=== PATIENT | male | born 1960 ===

== ENCOUNTER 2020-10-22 11:45 | Inpatient (IN) | payer MEDICARE, OTHER ==
[~2020-10-22] VITALS: Ht 182.9 cm; Wt 153.5 kg
--- NOTE | 2020-10-22 12:18 | NUR ---
TASK RN FIST CONTACT: THIS IS A 60 YO M W/ C/O CP AND SOB X1 WEEK. PT REPORTS HE WAS TOLD TO COME IN BECAUSE HE HAD HIGH POTASSIUM. PT REPORTS HE ALSO HAD GLUCOSE OF 12 LAST WEEK. PT STATES THAT HE WANTED TO STAY AT HOME TO WATCH SUPERBOWL. PT PRESENTS DIAPHORETIC, IN BIGEMINY, COMPLAINTS OF SOB AND CP. OTHER VS WDL. PIV STARTED, PT MEDICATED PER VERBAL ORDER.
--- NOTE | 2020-10-22 12:20 | NUR ---
2ND PIV STARTED.
[2020-10-22] MEDS ORDERED: CALCIUM CHLORIDE 10%, 10ML SYR ONE (12:23)
[2020-10-22] MEDS ORDERED: DEXTROSE 50%, 50ML SYRINGE ONE ×2 (12:24→13:44)
[2020-10-22] MEDS ORDERED: INSULIN SINGLE DOSE, ER ONE (12:24)
[2020-10-22] MEDS ORDERED: ASPIRIN 81 MG TABLET CHEW ONE (12:27)
[2020-10-22] MEDS ORDERED: ASPIRIN 81 MG TABLET CHEW PO ONE (12:30)
--- NOTE | 2020-10-22 12:30 | NUR ---
TASK RN: 1 AMP D50, 10 UNITS REGULAR INSULIN, 1 AMP OF CALCIUM CHLORIDE GIVEN. 162MG ASPIRIN PO GIVEN. Addendum: 10/22/20 at 1304 by [email or web address] TASK RN: 1 AMP D50, 10 UNITS REGULAR INSULIN, 1 AMP OF CALCIUM CHLORIDE GIVEN BY STEPHANIE ALONZO PER VERBAL ORDER BY . 162MG ASPIRIN PO GIVEN.
[2020-10-22 12:41] LABS: BASOPHILS % (AUTO) 0 % (0-1); EOSINOPHILS % (AUTO) 1 % (1-7); LYMPHOCYTES % (AUTO) 19 % (22-44); MEAN CORPUSCULAR HEMOGLOBIN 28.3 pg (27.5-34.5); MEAN CORPUSCULAR HGB CONC 33.4 g/dL (33.2-36.2); MEAN PLATELET VOLUME 7.4 fL (7.4-10.4); MONOCYTES % (AUTO) 9 % (2-9); NEUTROPHILS % (AUTO) 71 % (42-75); PLATELET COUNT 323 x10^3/uL (130-400); RED BLOOD COUNT 5.37 x10^6/uL (4.38-5.82); RED CELL DISTRIBUTION WIDTH 14.5 % (9.4-14.8)
--- NOTE | 2020-10-22 12:45 | NUR ---
REPORT GIVEN TO LEIDA ALONZO.
[2020-10-22 12:51] LABS: MD NO
[2020-10-22 12:53] LABS: ALBUMIN 3.4 g/dL (3.4-5.0); ANION GAP 5 mmol/L (5-15); CALCIUM 8.9 mg/dL (8.5-10.1); CHLORIDE 103 mmol/L (98-107)
[2020-10-22 12:58] LABS: ALANINE AMINOTRANSFERASE 96 U/L (12-78); ALKALINE PHOSPHATASE 152 U/L (45-117); BILIRUBIN,TOTAL 0.9 mg/dL (0.2-1.0); CREATININE 1.24 mg/dL (0.7-1.3); TOTAL PROTEIN 7.1 g/dL (6.4-8.2)
[2020-10-22] MEDS ORDERED: HEPARIN 5,000 UNITS/ML, 1ML ONE (13:07)
[2020-10-22] MEDS ORDERED: HEPARIN 25,000 UNITS/250ML PMX 250 ML ONE (13:07)
[2020-10-22] MEDS ORDERED: FUROSEMIDE 40 MG/4 ML ONE (13:21)
[2020-10-22] MEDS ORDERED: INSULIN REGULAR 100 UNITS/ML, 3ML VIAL IVPush ONE (13:30)
[2020-10-22] MEDS ORDERED: CALCIUM CHLORIDE 10%, 10ML SYR IVPush ONE (13:30)
[2020-10-22] MEDS ORDERED: DEXTROSE 50%, 50ML SYRINGE IVPush ONE ×2 (13:30→14:00)
[2020-10-22] MEDS ORDERED: HEPARIN 5,000 UNITS/ML, 1ML IV ONE ×2 (13:30)
[2020-10-22] MEDS ORDERED: HEPARIN 5,000 UNITS/ML, 1ML IV PRN (13:30)
[2020-10-22] MEDS ORDERED: FUROSEMIDE 40 MG/4 ML IV ONE (13:30)
[2020-10-22] MEDS ORDERED: HEPARIN 25,000 UNITS/250ML PMX 250 ML IV PRN (13:30)
[2020-10-22] MEDS: HEPARIN 25,000 UNITS/250ML PMX 250 ML IV PRN ×2 (13:35→15:55)
--- NOTE | 2020-10-22 13:39 | NUR ---
This RN called lab so anti-xa could be run prior to this RN starting or administering heparin.
[2020-10-22] MEDS ORDERED: DEXTROSE 50%, 50ML SYRINGE IVPush STA (13:54)
--- NOTE | 2020-10-22 13:56 | NUR ---
Pt reports feeling "shakey like blood sugar." FSBG 60. MD Martinez made aware, verbal order for NPO and 1/2 amp D50. Administered.
[2020-10-22] MEDS ORDERED: MIDAZOLAM 1 MG/ML, 5ML ONE (14:15)
[2020-10-22] MEDS ORDERED: FENTANYL PF 100 MCG/2ML ONE (14:15)
[2020-10-22] MEDS ORDERED: VERAPAMIL 2.5 MG/ML, 2ML ONE (14:16)
[2020-10-22] MEDS ORDERED: LIDOCAINE-MPF 1%, 5ML ONE (14:16)
[2020-10-22] MEDS ORDERED: BIVALIRUDIN 250 MG ONE (14:16)
[2020-10-22] MEDS ORDERED: HEPARIN 1,000 UNITS/ML, 10ML ONE (14:16)
[2020-10-22] MEDS: SODIUM CHLORIDE 0.9% 1,000 ML IV SCH ×2 (15:30→23:30)
[2020-10-22] MEDS ORDERED: POLYETHYLENE GLYCOL 17 GM PACKET PO PRN (16:00)
[2020-10-22] MEDS ORDERED: morphine SULFATE 10 MG/ML, 1ML IVPush PRN (16:00)
[2020-10-22] MEDS ORDERED: DOCUSATE 100 MG CAPSULE PO PRN (16:00)
[2020-10-22] MEDS ORDERED: ONDANSETRON 2MG/ML, 2ML IVPush PRN (16:00)
[2020-10-22] MEDS ORDERED: LABETALOL 5MG/ML, 20ML IVPush PRN (16:00)
[2020-10-22 16:17] VITALS: BP 138/73
[2020-10-22] MEDS ORDERED: GLUCAGON 1 MG IM PRN (16:30)
[2020-10-22] MEDS ORDERED: DEXTROSE 4 GM TAB.CHEW PO PRN (16:30)
[2020-10-22] MEDS ORDERED: DEXTROSE 50%, 50ML SYRINGE IVPush PRN (16:30)
[2020-10-22] MEDS: OXYcodone IR 5MG TABLET PO PRN (17:09)
[2020-10-22] MEDS: METOPROLOL TARTRATE 25 MG TAB PO SCH (17:09)
[2020-10-22] MEDS: LIDODERM 5% PATCH TD SCH (18:10)
[2020-10-22 20:00] VITALS: BP 139/85
[2020-10-22] MEDS: GABAPENTIN 300 MG CAPSULE PO SCH (20:24)
[2020-10-22] MEDS: ATORVASTATIN 40 MG TABLET PO SCH (20:25)
[2020-10-22] MEDS: SODIUM CHLORIDE FLUSH 10ML SYR IVF SCH (20:28)
[2020-10-22] MEDS: INSULIN LISPRO 100 UNITS/ML, PEN SQ-INSULIN SCH (20:34)
[2020-10-22] MEDS ORDERED: METOPROLOL TARTRATE 25 MG TAB PO ONE ×2 (21:46→23:59)
[2020-10-22 22:08] VITALS: BP 137/78
[2020-10-22] MEDS: HEPARIN 5,000 UNITS/ML, 1ML IV PRN (23:42)
[2020-10-23 00:46] VITALS: BP 122/81
[2020-10-23] MEDS: OXYcodone IR 5MG TABLET PO PRN ×4 (01:29→21:07)
[2020-10-23 05:25] VITALS: BP 136/82
[2020-10-23] MEDS: METOPROLOL TARTRATE 25 MG TAB PO SCH ×2 (05:29→16:49)
[2020-10-23] MEDS: ASPIRIN 81 MG TABLET EC PO SCH (05:29)
[2020-10-23] MEDS: LIDODERM REMOVE PATCH NOTE XX SCH (05:30)
[2020-10-23 05:31] LABS: BASOPHILS % (AUTO) 1 % (0-1); EOSINOPHILS % (AUTO) 1 % (1-7); LYMPHOCYTES % (AUTO) 30 % (22-44); MEAN CORPUSCULAR HEMOGLOBIN 28.4 pg (27.5-34.5); MEAN CORPUSCULAR HGB CONC 33.3 g/dL (33.2-36.2); MONOCYTES % (AUTO) 11 % (2-9); NEUTROPHILS % (AUTO) 58 % (42-75); PLATELET COUNT 298 x10^3/uL (130-400); RED BLOOD COUNT 5.37 x10^6/uL (4.38-5.82); RED CELL DISTRIBUTION WIDTH 14.5 % (9.4-14.8)
[2020-10-23 05:34] LABS: MD NO
[2020-10-23 05:37] LABS: ALBUMIN 3.1 g/dL (3.4-5.0); ANION GAP 6 mmol/L (5-15); CALCIUM 8.9 mg/dL (8.5-10.1); CHLORIDE 106 mmol/L (98-107); CHOLESTEROL, TOTAL 103 mg/dL (140-239)
[2020-10-23 05:45] LABS: ALANINE AMINOTRANSFERASE 80 U/L (12-78); ALKALINE PHOSPHATASE 127 U/L (45-117); BILIRUBIN,TOTAL 0.8 mg/dL (0.2-1.0); CHOL/HDL RATIO 2.1; CREATININE 1.07 mg/dL (0.7-1.3); HDL CHOL % 49 % (26-37); HDL CHOLESTEROL (DIRECT) 50 mg/dL (40-60); LDL CHOLESTEROL,CALCULATED 33 mg/dL (54-169); LDL/HDL RATIO 0.7 (0.5-3.0); TOTAL PROTEIN 6.4 g/dL (6.4-8.2); TRIGLYCERIDES 99 mg/dL (50-200); VLDL CHOLESTEROL 20 mg/dL (0-25)
[2020-10-23 08:20] VITALS: BP 125/87
[2020-10-23] MEDS: INSULIN LISPRO 100 UNITS/ML, PEN SQ-INSULIN SCH ×4 (08:24→20:37)
[2020-10-23] MEDS ORDERED: METF10007 PO (08:42)
[2020-10-23] MEDS ORDERED: GABA300C PO (08:42)
[2020-10-23] MEDS ORDERED: DULA0.75 INJ (08:42)
[2020-10-23] MEDS ORDERED: EMPA10TA PO (08:42)
[2020-10-23] MEDS ORDERED: HYDR-3248 PO (08:42)
[2020-10-23] MEDS ORDERED: LIDO700A20 TD (08:42)
[2020-10-23] MEDS ORDERED: CHOL10003 PO (08:42)
[2020-10-23] MEDS ORDERED: ATOR40TA78 PO (08:42)
[2020-10-23] MEDS ORDERED: ALLO300T PO (08:42)
[2020-10-23] MEDS ORDERED: DULO60CA7 PO (08:42)
[2020-10-23] MEDS ORDERED: INSU100V35 IJ (08:42)
[2020-10-23] MEDS: GABAPENTIN 300 MG CAPSULE PO SCH ×2 (08:53→20:38)
[2020-10-23] MEDS: CHOLECALCIFEROL 1,000 UNIT TABLET PO SCH (08:53)
[2020-10-23] MEDS: DULOXETINE 30 MG CAPSULE.DR PO SCH (08:53)
[2020-10-23] MEDS: ALLOPURINOL 100 MG TABLET PO SCH (08:54)
[2020-10-23] MEDS: SODIUM CHLORIDE FLUSH 10ML SYR IVF SCH ×2 (08:54→20:38)
[2020-10-23] MEDS ORDERED: AMIODARONE 150 MG in DEXTROSE 5% 100 ML IV ONE (09:00)
[2020-10-23] MEDS ORDERED: FILTER 0.22 MICRON FOR AMIODARONE IV PRN (09:30)
[2020-10-23] MEDS ORDERED: AMIODARONE 450 MG in DEXTROSE 5% 241 ML IV PRN (09:30)
[2020-10-23] MEDS: POTASSIUM CHLORIDE 20 MEQ TAB.ER.PRT PO SCH (09:34)
[2020-10-23] MEDS: FUROSEMIDE 40 MG TABLET PO SCH (09:34)
[2020-10-23] MEDS: HEPARIN 25,000 UNITS/250ML PMX 250 ML IV PRN (10:57)
[2020-10-23 12:43] VITALS: BP 145/85
[2020-10-23] MEDS: ACETYLCYSTEINE 600 MG CAPSULE PO SCH ×2 (12:57→20:38)
[2020-10-23] MEDS ORDERED: OMNIPAQUE 350 MG/ML, 100ML BOTTLE ONE (14:20)
[2020-10-23] MEDS: LIDODERM 5% PATCH TD SCH (16:53)
[2020-10-23] MEDS: ACETAMINOPHEN 325 MG TABLET PO PRN (16:58)
[2020-10-23 18:35] VITALS: BP_SYST 134; BP_SYST 145; BP_DIAS 84; BP_DIAS 85
[2020-10-23] MEDS: ATORVASTATIN 40 MG TABLET PO SCH (20:38)
[2020-10-24] MEDS: HEPARIN 5,000 UNITS/ML, 1ML IV PRN
[2020-10-24 01:10] VITALS: BP 144/77
[2020-10-24] MEDS: ACETAMINOPHEN 325 MG TABLET PO PRN ×2 (04:08→15:02)
[2020-10-24 05:47] VITALS: BP 146/85
[2020-10-24] MEDS: ASPIRIN 81 MG TABLET EC PO SCH (05:49)
[2020-10-24] MEDS: METOPROLOL TARTRATE 25 MG TAB PO SCH ×2 (05:49→17:20)
[2020-10-24] MEDS: HEPARIN 25,000 UNITS/250ML PMX 250 ML IV PRN (05:51)
[2020-10-24] MEDS: LIDODERM REMOVE PATCH NOTE XX SCH (05:52)
[2020-10-24 06:21] LABS: BASOPHILS % (AUTO) 1 % (0-1); EOSINOPHILS % (AUTO) 1 % (1-7); LYMPHOCYTES % (AUTO) 30 % (22-44); MEAN CORPUSCULAR HEMOGLOBIN 28.2 pg (27.5-34.5); MEAN CORPUSCULAR HGB CONC 32.9 g/dL (33.2-36.2); MEAN PLATELET VOLUME 7.2 fL (7.4-10.4); MONOCYTES % (AUTO) 11 % (2-9); NEUTROPHILS % (AUTO) 58 % (42-75); PLATELET COUNT 262 x10^3/uL (130-400); RED BLOOD COUNT 5.08 x10^6/uL (4.38-5.82); RED CELL DISTRIBUTION WIDTH 14.8 % (9.4-14.8)
[2020-10-24 06:22] LABS: MD NO
[2020-10-24 06:30] LABS: ANION GAP 5 mmol/L (5-15); CALCIUM 8.7 mg/dL (8.5-10.1); CHLORIDE 103 mmol/L (98-107); CREATININE 1.03 mg/dL (0.7-1.3)
[2020-10-24] MEDS: INSULIN LISPRO 100 UNITS/ML, PEN SQ-INSULIN SCH ×4 (07:00→21:07)
[2020-10-24 07:05] VITALS: BP 150/98
[2020-10-24] MEDS: ALLOPURINOL 100 MG TABLET PO SCH (07:57)
[2020-10-24] MEDS: FUROSEMIDE 40 MG TABLET PO SCH (07:57)
[2020-10-24] MEDS: ACETYLCYSTEINE 600 MG CAPSULE PO SCH ×2 (07:57→20:49)
[2020-10-24] MEDS: GABAPENTIN 300 MG CAPSULE PO SCH ×2 (07:57→20:49)
[2020-10-24] MEDS: POTASSIUM CHLORIDE 20 MEQ TAB.ER.PRT PO SCH (07:57)
[2020-10-24] MEDS: CHOLECALCIFEROL 1,000 UNIT TABLET PO SCH (07:57)
[2020-10-24] MEDS: DULOXETINE 30 MG CAPSULE.DR PO SCH (07:57)
[2020-10-24] MEDS: SODIUM CHLORIDE FLUSH 10ML SYR IVF SCH ×2 (07:58→20:48)
[2020-10-24] MEDS: APIXABAN 5 MG TABLET PO SCH ×2 (09:35→20:49)
[2020-10-24] MEDS: AMIODARONE 200 MG TABLET PO SCH ×2 (10:13→20:49)
[2020-10-24] MEDS: LISINOPRIL 10 MG TABLET PO SCH (10:13)
[2020-10-24 14:17] VITALS: BP 139/91
[2020-10-24] MEDS: OXYcodone IR 5MG TABLET PO PRN (15:03)
[2020-10-24] MEDS: LIDODERM 5% PATCH TD SCH (17:20)
[2020-10-24 20:44] VITALS: BP 121/78
[2020-10-24] MEDS: ATORVASTATIN 40 MG TABLET PO SCH (20:49)
[2020-10-24] MEDS: MINERA CRM, 60GM TP SCH (20:52)
[2020-10-25] MEDS: OXYcodone IR 5MG TABLET PO PRN ×2 (01:20→08:47)
[2020-10-25 01:46] VITALS: BP 149/81
[2020-10-25] MEDS: ASPIRIN 81 MG TABLET EC PO SCH (05:45)
[2020-10-25] MEDS: LIDODERM REMOVE PATCH NOTE XX SCH (05:46)
[2020-10-25] MEDS: METOPROLOL TARTRATE 25 MG TAB PO SCH (05:46)
[2020-10-25 08:33] VITALS: BP 146/92
[2020-10-25] MEDS: CHOLECALCIFEROL 1,000 UNIT TABLET PO SCH (08:47)
[2020-10-25] MEDS: AMIODARONE 200 MG TABLET PO SCH (08:47)
[2020-10-25] MEDS: GABAPENTIN 300 MG CAPSULE PO SCH (08:47)
[2020-10-25] MEDS: INSULIN LISPRO 100 UNITS/ML, PEN SQ-INSULIN SCH ×2 (08:47→11:00)
[2020-10-25] MEDS: ALLOPURINOL 100 MG TABLET PO SCH (08:48)
[2020-10-25] MEDS: FUROSEMIDE 40 MG TABLET PO SCH (08:48)
[2020-10-25] MEDS: POTASSIUM CHLORIDE 20 MEQ TAB.ER.PRT PO SCH (08:48)
[2020-10-25] MEDS: SODIUM CHLORIDE FLUSH 10ML SYR IVF SCH (08:48)
[2020-10-25] MEDS: APIXABAN 5 MG TABLET PO SCH (08:48)
[2020-10-25] MEDS: DULOXETINE 30 MG CAPSULE.DR PO SCH (08:48)
[2020-10-25] MEDS: LISINOPRIL 10 MG TABLET PO SCH (08:48)
[2020-10-25] MEDS: MINERA CRM, 60GM TP SCH (09:02)
[2020-10-25] MEDS ORDERED: CLOPIDOGREL 75 MG TABLET PO SCH (10:00)
[2020-10-25] MEDS ORDERED: ASPI81TA45 PO (12:41)
[2020-10-25] MEDS ORDERED: INSU100V35 IJ (12:41)
[2020-10-25] MEDS ORDERED: DULO60CA7 PO (12:41)
[2020-10-25] MEDS ORDERED: AMIO200T42 PO (12:41)
[2020-10-25] MEDS ORDERED: METO-93 PO (12:41)
[2020-10-25] MEDS ORDERED: LISI-167 PO (12:41)
[2020-10-25] MEDS ORDERED: APIX5TAB PO (12:41)
[2020-10-25] MEDS ORDERED: FURO40TA6 PO (12:41)
[2020-10-25] MEDS ORDERED: POTA20TA6 PO (12:41)
[2020-10-25] MEDS ORDERED: METOPROLOL SUCCINATE 50 MG TAB.ER.24H PO SCH (18:00)
== END 2020-10-25 13:54 | disposition home or self-care (01) | DRG 280 ==
LOC: ED 12:53 → EDIP 13:44 → SUATTDRO 13:58 → 5SO 15:05 → DCLOUNGE 10-25 13:31
PROVIDERS: ADMIT Internal Medicine; ATTEND Family Medicine
PROC: 4A023N7 Measurement of Cardiac Sampling and Pressure, Left Heart, Percutaneous Approach (ICD-10-PCS; principal; 2020-10-22)
PROC: B2111ZZ Fluoroscopy of Multiple Coronary Arteries using Low Osmolar Contrast (ICD-10-PCS; 2020-10-22)
PROC: B2151ZZ Fluoroscopy of Left Heart using Low Osmolar Contrast (ICD-10-PCS; 2020-10-22)
DX: I21.4 Non-ST elevation (NSTEMI) myocardial infarction (principal); I50.43 Acute on chronic combined systolic (congestive) and diastolic (congestive) heart failure; I13.0 Hypertensive heart and chronic kidney disease with heart failure and stage 1 through stage 4 chronic kidney disease, or unspecified chronic kidney disease; D68.69 Other thrombophilia; Z68.42 Body mass index [BMI] 45.0-49.9, adult; I42.8 Other cardiomyopathies; I48.20 Chronic atrial fibrillation, unspecified; E66.01 Morbid (severe) obesity due to excess calories; E55.9 Vitamin D deficiency, unspecified; E11.40 Type 2 diabetes mellitus with diabetic neuropathy, unspecified; G89.29 Other chronic pain; N18.30 Chronic kidney disease, stage 3 unspecified; E11.22 Type 2 diabetes mellitus with diabetic chronic kidney disease; E11.65 Type 2 diabetes mellitus with hyperglycemia; M54.32 Sciatica, left side; M54.31 Sciatica, right side; I49.3 Ventricular premature depolarization; E11.51 Type 2 diabetes mellitus with diabetic peripheral angiopathy without gangrene; F32.9 Major depressive disorder, single episode, unspecified; E78.5 Hyperlipidemia, unspecified; Z88.2 Allergy status to sulfonamides; Z88.8 Allergy status to other drugs, medicaments and biological substances; Z89.412 Acquired absence of left great toe; Z79.899 Other long term (current) drug therapy
CPT/HCPCS: 36415; 71045; 71275; 80048; 80053; 80061; 82962; 83880; 84443; 84484; 85025; 85379; 85520; 93005; 93970; 96374; 96375; 99291; C8929; G0378; J0583; J1644; J1815; J1940; J2250; J2405; J3010; Q9957; Q9967; J0282

== ENCOUNTER 2020-12-06 22:31 | Observation (INO) | payer MEDICARE ==
[~2020-12-06] VITALS: Ht 185.4 cm; Wt 137.5 kg
[~2020-12-06 22:31] MED LIST: ALLO300T PO; AMIO200T42 PO; APIX5TAB PO; ASPI81TA45 PO; ATOR40TA78 PO; CHOL10003 PO; DULA0.75 INJ; DULO60CA7 PO; EMPA10TA PO; FURO-92 PO; FURO40TA6 PO; GABA300C PO; HYDR-3248 PO; INSU100V35 IJ; LIDO700A20 TD; LISI-167 PO; METF10007 PO; METO-93 PO; POTA20TA6 PO
--- NOTE | 2020-12-06 22:41 | NUR ---
BIBA FOR LEFT SHOULDER PAIN AND BACK PAIN 03/23. PT HAS HX OF A-FIB, CURRENTLY IN A-FIB WITH FREQUENT PVC'S. EMS 12 LEAD SHOWS SAME WITH HR 100'S.
[2020-12-06] MEDS ORDERED: MORPHINE SULFATE 4 MG/ML, 1ML ONE (22:46)
[2020-12-06 22:53] LABS: BASOPHILS % (AUTO) 1 % (0-1); EOSINOPHILS % (AUTO) 2 % (1-7); LYMPHOCYTES % (AUTO) 28 % (22-44); MD NO; MEAN CORPUSCULAR HEMOGLOBIN 28.8 pg (27.5-34.5); MEAN CORPUSCULAR HGB CONC 34.2 g/dL (33.2-36.2); MEAN PLATELET VOLUME 7.3 fL (7.4-10.4); MONOCYTES % (AUTO) 10 % (2-9); NEUTROPHILS % (AUTO) 60 % (42-75); PLATELET COUNT 287 x10^3/uL (130-400); RED BLOOD COUNT 5.22 x10^6/uL (4.38-5.82)
[2020-12-06] MEDS ORDERED: MORPHINE SULFATE 4 MG/ML, 1ML IVPush PRN (23:00)
[2020-12-06 23:06] LABS: ALANINE AMINOTRANSFERASE 35 U/L (12-78); ALBUMIN 3.2 g/dL (3.4-5.0); ANION GAP 5 mmol/L (5-15); CALCIUM 8.3 mg/dL (8.5-10.1); CHLORIDE 97 mmol/L (98-107); CREATININE 2.19 mg/dL (0.7-1.3)
[2020-12-06 23:11] LABS: ALKALINE PHOSPHATASE 92 U/L (45-117); BILIRUBIN,TOTAL 0.4 mg/dL (0.2-1.0); TOTAL PROTEIN 6.9 g/dL (6.4-8.2)
[2020-12-06 23:16] LABS: TROPONIN I 0.271 ng/mL (0.000-0.045)
[2020-12-06] MEDS ORDERED: SODIUM BICARB 8.4%, 50ML SYRINGE IVPush ONE (23:30)
[2020-12-06] MEDS ORDERED: CALCIUM CHLORIDE 10%, 10ML SYR IVPush ONE (23:30)
[2020-12-06] MEDS ORDERED: INSULIN REGULAR 100 UNITS/ML, 3ML VIAL IVPush ONE (23:30)
[2020-12-06] MEDS ORDERED: HEPARIN 5,000 UNITS/ML, 1ML IV ONE (23:45)
[2020-12-06] MEDS ORDERED: HEPARIN 25,000 UNITS/250ML PMX 250 ML IV PRN (23:45)
[2020-12-06] MEDS ORDERED: SODIUM BICARB 8.4%, 50ML SYRINGE ONE (23:47)
[2020-12-06] MEDS ORDERED: CALCIUM CHLORIDE 10%, 10ML SYR ONE (23:47)
[2020-12-06] MEDS ORDERED: INSULIN SINGLE DOSE, ER ONE (23:49)
--- NOTE | 2020-12-07 00:28 | NUR ---
REPORT GIVEN TO NENA ALONZO
[2020-12-07 01:04] VITALS: BP 113/73
[2020-12-07 01:21] LABS: AMPHETAMINE SCREEN, URINE Negative (Negative); BARBITURATE SCREEN, URINE Negative (Negative); BENZODIAZEPINE SCREEN, URINE Negative (Negative); CANNABINOID SCREEN, URINE Positive (Negative); COCAINE SCREEN, URINE Negative (Negative); METHADONE SCREEN, URINE Negative (Negative); OPIATE SCREEN, URINE Positive (Negative)
[2020-12-07] MEDS ORDERED: NITROGLYCERIN 0.4 MG/SPRAY SL PRN (01:30)
[2020-12-07] MEDS ORDERED: ONDANSETRON 2MG/ML, 2ML IVPush PRN (01:30)
[2020-12-07] MEDS ORDERED: ASPIRIN 325 MG TABLET EC PO ONE (01:30)
[2020-12-07] MEDS ORDERED: NITROGLYCERIN 0.4 MG BOTTLE (25 TABS) SL PRN (01:30)
[2020-12-07] MEDS: LIDODERM 5% PATCH TD SCH (02:00)
[2020-12-07 02:10] LABS: BASOPHILS % (AUTO) 0 % (0-1); EOSINOPHILS % (AUTO) 2 % (1-7); LYMPHOCYTES % (AUTO) 33 % (22-44); MEAN CORPUSCULAR HEMOGLOBIN 28.4 pg (27.5-34.5); MEAN CORPUSCULAR HGB CONC 33.7 g/dL (33.2-36.2); MEAN PLATELET VOLUME 7.6 fL (7.4-10.4); MONOCYTES % (AUTO) 11 % (2-9); NEUTROPHILS % (AUTO) 54 % (42-75); PLATELET COUNT 270 x10^3/uL (130-400); RED BLOOD COUNT 5.05 x10^6/uL (4.38-5.82); RED CELL DISTRIBUTION WIDTH 15.1 % (9.4-14.8)
[2020-12-07 02:18] LABS: MD NO
[2020-12-07 02:24] LABS: ALBUMIN 3.1 g/dL (3.4-5.0); ANION GAP 3 mmol/L (5-15); CALCIUM 8.8 mg/dL (8.5-10.1); CHLORIDE 100 mmol/L (98-107)
[2020-12-07 02:30] LABS: ALANINE AMINOTRANSFERASE 32 U/L (12-78); ALKALINE PHOSPHATASE 92 U/L (45-117); BILIRUBIN,TOTAL 0.4 mg/dL (0.2-1.0); CHOL/HDL RATIO 4.1; CHOLESTEROL, TOTAL 152 mg/dL (140-239); CREATININE 2.03 mg/dL (0.7-1.3); HDL CHOL % 24 % (26-37); HDL CHOLESTEROL (DIRECT) 37 mg/dL (40-60); TOTAL PROTEIN 6.6 g/dL (6.4-8.2); TRIGLYCERIDES 447 mg/dL (50-200); TROPONIN I 0.262 ng/mL (0.000-0.045)
[2020-12-07 04:56] LABS: TROPONIN I 0.281 ng/mL (0.000-0.045)
[2020-12-07] MEDS: morphine SULFATE 10 MG/ML, 1ML IV PRN ×2 (06:04→17:26)
[2020-12-07 07:29] LABS: TROPONIN I 0.273 ng/mL (0.000-0.045)
[2020-12-07] MEDS: SODIUM CHLORIDE FLUSH 10ML SYR IVF SCH ×2 (09:00→21:34)
[2020-12-07] MEDS: ALLOPURINOL 100 MG TABLET PO SCH (09:00)
[2020-12-07] MEDS: COLCHICINE 0.6 MG CAPSULE PO SCH ×2 (09:00→21:28)
[2020-12-07] MEDS ORDERED: AMIODARONE 200 MG TABLET PO SCH (09:00)
[2020-12-07] MEDS: DULOXETINE 30 MG CAPSULE.DR PO SCH (09:00)
[2020-12-07] MEDS: FUROSEMIDE 40 MG TABLET PO SCH (09:01)
[2020-12-07] MEDS: ATORVASTATIN 40 MG TABLET PO SCH (09:01)
[2020-12-07] MEDS: INSULIN LISPRO 100 UNITS/ML, PEN SQ-INSULIN SCH ×3 (11:55→21:32)
[2020-12-07] MEDS: metFORMIN 500 MG TABLET PO SCH (17:24)
[2020-12-07] MEDS ORDERED: METOPROLOL SUCCINATE 50 MG TAB.ER.24H PO SCH (18:00)
[2020-12-07] MEDS ORDERED: METOPROLOL SUCCINATE 100 MG TAB.ER.24H PO SCH (18:00)
[2020-12-07] MEDS: APIXABAN 5 MG TABLET PO SCH (21:29)
[2020-12-08 01:05] VITALS: BP 110/69
[2020-12-08] MEDS: LIDODERM 5% PATCH TD SCH (01:30)
[2020-12-08] MEDS ORDERED: ASPIRIN 325 MG TABLET EC PO SCH (06:00)
[2020-12-08 06:57] VITALS: BP 144/83
[2020-12-08] MEDS: INSULIN LISPRO 100 UNITS/ML, PEN SQ-INSULIN SCH ×2 (07:00→11:00)
[2020-12-08] MEDS: COLCHICINE 0.6 MG CAPSULE PO SCH (08:41)
[2020-12-08] MEDS: APIXABAN 5 MG TABLET PO SCH (08:42)
[2020-12-08] MEDS: ATORVASTATIN 40 MG TABLET PO SCH (08:42)
[2020-12-08] MEDS: DULOXETINE 30 MG CAPSULE.DR PO SCH (08:42)
[2020-12-08] MEDS: FUROSEMIDE 40 MG TABLET PO SCH (08:42)
[2020-12-08] MEDS: ALLOPURINOL 100 MG TABLET PO SCH (08:42)
[2020-12-08] MEDS: metFORMIN 500 MG TABLET PO SCH (08:42)
[2020-12-08] MEDS: SODIUM CHLORIDE FLUSH 10ML SYR IVF SCH (08:43)
[2020-12-08] MEDS ORDERED: DILTIAZEM 120 MG CAP.ER.24H PO SCH (09:30)
[2020-12-08 09:33] LABS: ALBUMIN 3.4 g/dL (3.4-5.0); ANION GAP 3 mmol/L (5-15); CALCIUM 9.4 mg/dL (8.5-10.1); CHLORIDE 101 mmol/L (98-107); CREATININE 1.45 mg/dL (0.7-1.3)
[2020-12-08] MEDS ORDERED: COLC0.6C3 PO (11:19)
[2020-12-08] MEDS ORDERED: DILT120C2 PO (11:21)
== END 2020-12-08 11:51 | disposition home or self-care (01) ==
LOC: ED 23:43 → EDIP 12-07 00:25 → INTOOBSV 12-07 00:25 → 5SO 12-07 00:31 → DCLOUNGE 12-08 11:45
PROVIDERS: ADMIT Internal Medicine; ATTEND Family Medicine
DX: R07.89 Other chest pain (principal); G89.29 Other chronic pain; N17.9 Acute kidney failure, unspecified; I13.0 Hypertensive heart and chronic kidney disease with heart failure and stage 1 through stage 4 chronic kidney disease, or unspecified chronic kidney disease; E11.22 Type 2 diabetes mellitus with diabetic chronic kidney disease; I50.42 Chronic combined systolic (congestive) and diastolic (congestive) heart failure; N18.30 Chronic kidney disease, stage 3 unspecified; E87.5 Hyperkalemia; E11.40 Type 2 diabetes mellitus with diabetic neuropathy, unspecified; I42.8 Other cardiomyopathies; M10.9 Gout, unspecified; I49.3 Ventricular premature depolarization; I48.92 Unspecified atrial flutter; D68.69 Other thrombophilia; I21.4 Non-ST elevation (NSTEMI) myocardial infarction; I48.20 Chronic atrial fibrillation, unspecified; E66.01 Morbid (severe) obesity due to excess calories; I25.2 Old myocardial infarction; Z87.891 Personal history of nicotine dependence; Z79.82 Long term (current) use of aspirin; Z79.4 Long term (current) use of insulin; Z79.01 Long term (current) use of anticoagulants; Z79.899 Other long term (current) drug therapy
CPT/HCPCS: 36415; 71045; 80053; 80061; 80069; 80307; 82962; 83036; 83735; 83880; 84484; 85025; 85379; 85520; 93005; 96374; 96375; 96376; 99285; G0378; J1815; J2270

== ENCOUNTER 2021-03-21 05:57 | Day surgery (SDC) | payer MEDICARE ==
[~2021-03-21] VITALS: Ht 182.9 cm; Wt 137.3 kg
[~2021-03-21 05:57] MED LIST changes: +COLC0.6C3 PO; +DILT120C2 PO
[2021-03-21] MEDS ORDERED: METO25TA91 PO (06:39)
[2021-03-21] MEDS ORDERED: TELM40TA PO (06:39)
[2021-03-21] MEDS ORDERED: FURO80TA77 PO (06:39)
[2021-03-21] MEDS ORDERED: INSU100I32 SQ (06:39)
[2021-03-21 06:41] VITALS: BP 147/100
[2021-03-21 07:10] LABS: ANION GAP 7 mmol/L (5-15); BASOPHILS % (AUTO) 1 % (0-1); CHLORIDE 107 mmol/L (98-107); EOSINOPHILS % (AUTO) 2 % (1-7); LYMPHOCYTES % (AUTO) 23 % (22-44); MEAN CORPUSCULAR HEMOGLOBIN 29.3 pg (27.5-34.5); MEAN CORPUSCULAR HGB CONC 33.2 g/dL (33.2-36.2); MEAN PLATELET VOLUME 7.3 fL (7.4-10.4); MONOCYTES % (AUTO) 10 % (2-9); NEUTROPHILS % (AUTO) 65 % (42-75); PLATELET COUNT 309 x10^3/uL (130-400); RED BLOOD COUNT 5.21 x10^6/uL (4.38-5.82); RED CELL DISTRIBUTION WIDTH 14.8 % (9.4-14.8)
[2021-03-21] MEDS ORDERED: PROPOFOL 10 MG/ML, 20ML ONE (09:20)
== END 2021-03-21 08:33 | disposition home or self-care (01) ==
LOC: CACL 05:57
PROVIDERS: ATTEND Internal Medicine Cardiovascular Disease
DX: I48.92 Unspecified atrial flutter (principal); I48.19 Other persistent atrial fibrillation; I42.9 Cardiomyopathy, unspecified; I10 Essential (primary) hypertension; E78.2 Mixed hyperlipidemia; E11.9 Type 2 diabetes mellitus without complications; G47.30 Sleep apnea, unspecified; E66.3 Overweight; Z68.41 Body mass index [BMI] 40.0-44.9, adult; Z79.01 Long term (current) use of anticoagulants; Z79.84 Long term (current) use of oral hypoglycemic drugs; Z79.899 Other long term (current) drug therapy; Z88.8 Allergy status to other drugs, medicaments and biological substances
CPT/HCPCS: 36415; 80048; 85025; 92960; J2704

== ENCOUNTER 2021-04-16 12:53 | Outpatient (CLI) | payer MEDICARE ==
[~2021-04-16 12:53] MED LIST changes: +FURO80TA77 PO; +INSU100I32 SQ; +METO25TA91 PO; +POTA-143 PO; -POTA20TA6 PO; +TELM40TA PO
[2021-04-16 13:41] LABS: ALBUMIN 3.6 g/dL (3.4-5.0); ANION GAP 3 mmol/L (5-15); CALCIUM 9.4 mg/dL (8.5-10.1); CHLORIDE 102 mmol/L (98-107)
[2021-04-16 13:43] LABS: ALANINE AMINOTRANSFERASE 34 U/L (12-78); ALKALINE PHOSPHATASE 72 U/L (45-117); BILIRUBIN,TOTAL 0.5 mg/dL (0.2-1.0); CREATININE 1.56 mg/dL (0.7-1.3); TOTAL PROTEIN 7.4 g/dL (6.4-8.2)
[2021-04-16] MEDS ORDERED: TRAZ50TA66 PO (15:17)
[2021-04-16] MEDS ORDERED: INSU200I4 INJ (15:17)
[2021-04-16] MEDS ORDERED: AMIO200T42 PO (15:17)
[2021-04-16] MEDS ORDERED: ASPI81TA45 PO (15:17)
[2021-04-16] MEDS ORDERED: DILT120T3 PO (15:17)
[2021-04-16] MEDS ORDERED: ASCO250T12 PO (15:17)
[2021-04-16] MEDS ORDERED: APIX5TAB PO (15:17)
[2021-04-16] MEDS ORDERED: DULO30CA2 PO (15:17)
[2021-04-16] MEDS ORDERED: LOSA50TA14 PO (15:17)
[2021-04-16] MEDS ORDERED: ACET325T14 PO (15:17)
== END 2021-04-16 23:59 | disposition home or self-care (01) ==
LOC: STAR 12:53
PROVIDERS: ATTEND Internal Medicine Gastroenterology
DX: Z01.818 Encounter for other preprocedural examination (principal); I45.10 Unspecified right bundle-branch block; I48.91 Unspecified atrial fibrillation; K92.1 Melena
CPT/HCPCS: 36415; 80053; 93005

== ENCOUNTER 2021-04-25 08:24 | Day surgery (SDC) | payer MEDICARE ==
[~2021-04-25] VITALS: Ht 182.9 cm; Wt 138.7 kg
[~2021-04-25 08:24] MED LIST changes: +ACET325T14 PO; +ASCO250T12 PO; +DILT120T3 PO; +DULO30CA2 PO; +INSU200I4 INJ; +LOSA50TA14 PO; -POTA-143 PO; +POTA20TA6 PO; +TRAZ50TA66 PO
[2021-04-25] MEDS ORDERED: MIDAZOLAM 1 MG/ML, 2ML ONE (08:49)
[2021-04-25] MEDS ORDERED: PROPOFOL 50 ML ONE (08:50)
[2021-04-25] MEDS ORDERED: KETAMINE 50 MG/ML, 10ML ONE (09:21)
[2021-04-25 09:24] VITALS: BP 151/83
[2021-04-25] MEDS ORDERED: LACTATED RINGERS 1,000 ML IV SCH (09:30)
[2021-04-25] MEDS ORDERED: CHLORHEXIDINE 15 ML UDC PO ONE (09:30)
== END 2021-04-25 12:30 | disposition home or self-care (01) ==
LOC: OUT 08:24
PROVIDERS: ATTEND Internal Medicine Gastroenterology
DX: R19.5 Other fecal abnormalities (principal); K29.50 Unspecified chronic gastritis without bleeding; K22.70 Barrett's esophagus without dysplasia; I11.0 Hypertensive heart disease with heart failure; I50.9 Heart failure, unspecified; E11.9 Type 2 diabetes mellitus without complications; I48.19 Other persistent atrial fibrillation; F41.9 Anxiety disorder, unspecified; G47.30 Sleep apnea, unspecified; F12.10 Cannabis abuse, uncomplicated; E66.01 Morbid (severe) obesity due to excess calories; Z79.01 Long term (current) use of anticoagulants; Z79.82 Long term (current) use of aspirin; Z79.84 Long term (current) use of oral hypoglycemic drugs; Z79.899 Other long term (current) drug therapy; Z88.8 Allergy status to other drugs, medicaments and biological substances
CPT/HCPCS: 43239; 45378; 82962; 88305; J2250; J2704; J7120